=== PATIENT | female | born 1955 | race Caucasian/White ===

== ENCOUNTER → 2016-07-14 | Outpatient (CLI) | payer BC, OTHER | LOC: MC.RAD 10:14 | DX: Z12.31 Encounter for screening mammogram for malignant neoplasm of breast (principal) ==

== ENCOUNTER → 2017-02-26 | Outpatient (CLI) | payer BC, OTHER | LOC: COL.CARD 12:58 | DX: R00.2 Palpitations (principal) ==

== ENCOUNTER → 2017-09-24 | Outpatient (CLI) | payer BC, OTHER | LOC: MC.RAD 11:17 | DX: Z12.31 Encounter for screening mammogram for malignant neoplasm of breast (principal) ==

== ENCOUNTER → 2019-05-03 | Outpatient (CLI) | payer BC, OTHER | LOC: MC.RAD 11:44 | DX: Z12.31 Encounter for screening mammogram for malignant neoplasm of breast (principal) ==

== ENCOUNTER → 2019-06-07 | Outpatient (CLI) | payer BC, OTHER ==
[2019-06-07 12:01] LABS: HEMATOCRIT 41.9 % (37.0-47.0); HEMOGLOBIN 13.4 g/dl (12.5-16.0); MEAN CELL VOLUME 88 fl (80.0-100.0); MEAN CORPUSCULAR HEMOGLOBIN 28 pg (27.0-31.0); MEAN CORPUSCULAR HGB CONC 32 g/dl (33.0-37.0); MEAN PLATELET VOLUME 9.6 fl (7.4-10.4); PLATELET COUNT 423 K/mm3 (130-400); RED BLOOD COUNT 4.76 M/mm3 (4.10-5.30); REDCELL DISTRIBUTION WIDTH-CV 11.9 % (11.5-14.5)
[2019-06-07 12:15] LABS: ALBUMIN 4.2 gm/dL (3.5-5.0); BILIRUBIN,TOTAL 0.4 mg/dL (0.0-1.0); CALCIUM 9.3 mg/dL (8.4-10.2); CREATININE, serum 0.79 (0.52-1.25); POTASSIUM 4.4 mmol/L (3.4-5.0)
[2019-06-07 12:51] LABS: BAND 4 % (0-10); EOSINOPHIL 5 % (0-4); LYMPHOCYTE 53 % (20.0-51.0); NEUTROPHILS 21 % (42.0-75.2)
[2019-06-07 12:58] LABS: PLATELET ESTIMATE NORMAL (NORMAL)
== END ==
LOC: COL.LAB 11:14
PROVIDERS: Internal Medicine Gastroenterology
DX: C16.9 Malignant neoplasm of stomach, unspecified (principal); K21.9 Gastro-esophageal reflux disease without esophagitis; R07.89 Other chest pain

== ENCOUNTER → 2019-06-08 | Outpatient (CLI) | payer BC, OTHER | LOC: COL.RAD 08:08 | DX: C16.9 Malignant neoplasm of stomach, unspecified (principal); K21.9 Gastro-esophageal reflux disease without esophagitis; M46.94 Unspecified inflammatory spondylopathy, thoracic region; K31.89 Other diseases of stomach and duodenum | CPT/HCPCS: Q9967 ==

== ENCOUNTER 2020-04-08 17:00 | Emergency (ER) | payer SELFPAY ==
[~2020-04-08] VITALS: Ht 157.5 cm; Wt 49.1 kg
[2020-04-08] MEDS ORDERED: CYMBALTA 30MG30 MG PO (17:33)
[2020-04-08] MEDS ORDERED: NEURONTIN300 MG/CAP PO (17:33)
[2020-04-08] MEDS ORDERED: KEYTRUDA25 MG/ML IV (17:34)
[2020-04-08] MEDS ORDERED: ROXICODONE 55 MG/TAB PO (17:34)
[2020-04-08] MEDS ORDERED: VITAMIN B11000 MCG/M IM (17:35)
[2020-04-08] MEDS ORDERED: FERROUS SU325 MG/TAB PO (17:35)
[2020-04-08] MEDS ORDERED: OSCAL 500 TAB500 MG PO (17:36)
[2020-04-08 18:02] LABS: BASO % 1.4 % (0.0-2.0); EOS # 0.1 (0.0-0.7); EOS % 2.8 % (0-4.0); GRAN # 1.8 (1.4-6.5); GRAN % 62.5 % (42.2-75.2); HEMOGLOBIN 11.1 g/dl (12.5-16.0); LYMPH # 0.4 (1.2-3.4); LYMPH % 15.3 % (20.0-51.0); MEAN CELL VOLUME 80 fl (80.0-100.0); MEAN CORPUSCULAR HEMOGLOBIN 24 pg (27.0-31.0); MEAN CORPUSCULAR HGB CONC 30 g/dl (33.0-37.0); MEAN PLATELET VOLUME 10.2 fl (7.4-10.4); MONO # 0.5 (0.1-0.6); MONO % 17.7 % (1.7-9.3); PLATELET COUNT 190 K/mm3 (130-400); RED BLOOD COUNT 4.61 M/mm3 (4.10-5.30); REDCELL DISTRIBUTION WIDTH-CV 22.3 % (11.5-14.5)
[2020-04-08 18:07] LABS: HEMATOCRIT 36.7 % (37.0-47.0)
[2020-04-08 18:10] LABS: COLLECTION METHOD CLEAN CATCH
[2020-04-08 18:11] LABS: ALBUMIN 4.5 gm/dL (3.5-5.0); BILIRUBIN,TOTAL 0.6 mg/dL (0.0-1.0); C-REACTIVE PROTEIN 1.3 mg/dL (0.0-0.9); CALCIUM 9.3 mg/dL (8.4-10.2); CREATININE, serum 0.76 (0.52-1.25); POTASSIUM 3.9 mmol/L (3.4-5.0)
[2020-04-08 18:18] LABS: MUCOUS Present /lpf; PH 5 (5-8); SQUAMOUS EPITHELIAL 0-2 /hpf; URINE APPEARANCE Clear; URINE BACTERIA Rare /hpf; URINE BILIRUBIN Negative (NEGATIVE); URINE BLOOD Negative (NEGATIVE); URINE COLOR Yellow; URINE GLUCOSE Negative (NEGATIVE); URINE KETONE Negative (NEGATIVE); URINE LEUKOCYTE ESTERASE Negative (NEGATIVE); URINE NITRATE Negative (NEGATIVE); URINE PROTEIN(semi-quant) Negative (NEGATIVE); URINE RBC 0-2 /hpf; URINE UROBILINOGEN Negative (NEGATIVE)
[2020-04-08 19:17] VITALS: BP 114/75; PULSE 75; TEMP 98.9
== END 2020-04-08 19:38 | disposition home or self-care (01) ==
LOC: COL.ER 17:00
PROVIDERS: Emergency Medicine
DX: R50.9 Fever, unspecified (principal); Z20.828 Contact with and (suspected) exposure to other viral communicable diseases; Z85.028 Personal history of other malignant neoplasm of stomach
CPT/HCPCS: J7030

== ENCOUNTER → 2020-08-22 | Outpatient (CLI) | payer OTHER ==
[~2020-08-22] MED LIST: CYMBALTA 30MG30 MG PO; FERROUS SU325 MG/TAB PO; KEYTRUDA25 MG/ML IV; NEURONTIN300 MG/CAP PO; OSCAL 500 TAB500 MG PO; ROXICODONE 55 MG/TAB PO; VITAMIN B11000 MCG/M IM
== END ==
LOC: MC.RAD 09:28
DX: Z12.31 Encounter for screening mammogram for malignant neoplasm of breast (principal)

== ENCOUNTER 2022-05-12 11:43 | Emergency (ER) | payer OTHER ==
[~2022-05-12] VITALS: Ht 157.5 cm; Wt 43.2 kg
[2022-05-12 13:35] LABS: BASO % 0.2 % (0.0-2.0); EOS % 0.1 % (0.0-4.0); GRAN # 9.6 K/mm3 (1.4-6.5); GRAN % 83.8 % (42.2-75.2); LYMPH # 0.4 K/mm3 (1.2-3.4); LYMPH % 3.1 % (20.0-51.0); MEAN CELL VOLUME 74 fl (80.0-100.0); MEAN CORPUSCULAR HGB CONC 29 g/dl (33.0-37.0); MEAN PLATELET VOLUME 9.9 fl (7.4-10.4); MONO # 1.4 K/mm3 (0.1-0.6); MONO % 12.5 % (1.7-9.3); PLATELET COUNT 539 K/mm3 (130-400); RED BLOOD COUNT 2.08 M/mm3 (4.10-5.30); REDCELL DISTRIBUTION WIDTH-CV 17.8 % (11.5-14.5)
[2022-05-12 13:36] LABS: MEAN CORPUSCULAR HEMOGLOBIN 22 pg (27-31)
[2022-05-12 13:37] LABS: HEMATOCRIT 15.3 % (37.0-47.0)
[2022-05-12 13:38] LABS: HEMOGLOBIN 4.5 g/dl (12.5-16.0)
[2022-05-12 13:54] LABS: ALBUMIN 2.2 gm/dL (3.4-4.8); BILIRUBIN,TOTAL 0.7 mg/dL (0.2-1.2); CALCIUM 8.2 mg/dL (8.4-10.2); CREATININE, serum 0.77 mg/dL (0.57-1.11); POTASSIUM 4.8 mmol/L (3.5-4.5); TOTAL PROTEIN 5.6 gm/dL (6.2-8.1)
[2022-05-12 15:35] VITALS: BP 116/70; PULSE 110; TEMP 98.3
[2022-05-12 15:50] VITALS: BP 120/76; PULSE 115; TEMP 98.4
[2022-05-12 16:00] VITALS: BP 115/70; PULSE 111
[2022-05-12 16:30] VITALS: BP 127/78; PULSE 111; TEMP 98.3
[2022-05-12 16:33] LABS: COLLECTION METHOD CLEAN CATCH
[2022-05-12 16:58] LABS: URINE APPEARANCE Clear (CLEAR/HAZY); URINE COLOR Amber (YELLOW); URINE PROTEIN(semi-quant) 1+ (NEGATIVE)
[2022-05-12 16:59] LABS: URINE BLOOD Negative (NEGATIVE); URINE GLUCOSE Negative (NEGATIVE); URINE KETONE 3+ (NEGATIVE); URINE NITRATE Negative (NEGATIVE)
[2022-05-12 17:11] LABS: MUCOUS Present (NOT PRESENT); URINE BACTERIA None Seen /hpf (NONE SEEN); URINE RBC 0-2 /hpf (0-2)
[2022-05-12 17:25] VITALS: BP 119/72; PULSE 110
== END 2022-05-12 17:27 | disposition short-term general hospital (02) ==
LOC: COL.ER 11:43
PROVIDERS: Personal Emergency Response Attendant
DX: D64.9 Anemia, unspecified (principal); I26.99 Other pulmonary embolism without acute cor pulmonale; C16.9 Malignant neoplasm of stomach, unspecified; Z28.310 Unvaccinated for COVID-19; Z92.21 Personal history of antineoplastic chemotherapy; Z90.49 Acquired absence of other specified parts of digestive tract
CPT/HCPCS: J2270; J2405; J7030; P9016